=== PATIENT | male | born 1940 | race Caucasian/White ===

== ENCOUNTER 2019-06-19 14:49 | Inpatient (IN) | payer OTHER ==
[~2019-06-19] VITALS: Ht 172.7 cm; Wt 73.0 kg
--- NOTE | ~2019-06-19 | EKG ---
[place], [place] ELECTROCARDIOGRAM REPORT NAME: RENITA LAMB UNIT #: [id number] ROOM: 510 DOCTOR: PRUDENCIO DRAFT REPORT BIRTHDATE: [birth year] [facility] Test Date: 2019-06-19 Test Time: 15:18:48 Pat Name: RENITA LAMB Department: Room: 510 Gender: M Spar Machine Operator: Shari Schneider : 1940 Requested By: JAYCOB BYRNES Order Number: [id number] Reading MD: Nahun Paul MD Measurements Intervals [place] Rate: 58 P: 88 UT: 161 QRS: 77 QRSD: 95 T: 115 QT: 447 QTc: 440 Interpretive Statements Sinus rhythm Nonspecific T abnormalities, lateral leads Baseline wander in lead(s) I,II,III Compared to ECG 02/20/2019 04:40:14 Supraventricular tachycardia no longer present Electronically Signed On 06-21-2019 4:07:36 PDT by Nahun Paul MD CM:EKGRPT:ELECTROCARDIOGRAM REPORT [id number] JAYCOB SPEAR DRAFT REPORT JAYCOB BYRNES DO
[~2019-06-19 14:49] MED LIST: ADVAIR 250/501 EA INH; AMLODIPINE BESYL5 MG PO; AMOXIL500 MG PO; ASPIRIN CHEWABL81 MG PO; ATARAX25 MG PO; AZITHROMYCIN250 MG PO; B12,B-12,B 12500 MC1 PO; DEPAKOTE PO; DEPAKOTE500 MG PO; DONEPEZIL HCL5 MG PO; EQ LUBRICATING15 ML OP; FLOMAX0.4 MG PO; FUROSEMIDE20 M1 PO; KEFLEX500 MG PO; KENALOG0.51 TP; LEVAQUIN750 M1 PO; MELATONIN3 MG PO; METOPROLOL TART50 M1 PO; MUCINEX ER600 MG PO; PREDNISONE10 MG PO; VENTOLIN H0.09 MG/AC INH; VITAMIN D-32000 UNI1 PO
[2019-06-19 14:52] VITALS: BP 95/69
--- NOTE | 2019-06-19 15:47 | NUR ---
FAMILY REFUSES IV AT THIS TIME.
[2019-06-19 16:00] VITALS: BP 128/90
--- NOTE | 2019-06-19 16:00 | NUR ---
FAMILY STATES THEY WANT NOTHING DONE TO PATIENT. REFUSED WOUND PHOTOS.
[2019-06-19 17:50] VITALS: BP 128/90
--- NOTE | 2019-06-19 17:50 | NUR ---
Time: 1749 A 78 year old MALE admitted to 5E under services of ROBERTO ALAS DO. Pt. arrived via bed from ER. Chief complaint: INPATIENT HOSPICE. [facility]
--- NOTE | 2019-06-19 18:18 | NUR ---
FAMILY REFUSED IV ACCESS AND WOUND PHOTOS AND MEASUREMENTS D/T HOSPICE STATUS.
--- NOTE | 2019-06-19 19:46 | NUR ---
SPOKE TO [facility] FOR C[facility] RN AND REQUESTED HER FAX COPY OF MED LIST. FAX NUMBER PROVIDED.
[2019-06-19 20:00] VITALS: BP 108/48
--- NOTE | 2019-06-19 21:12 | NUR ---
MED LIST REC'D FROM [facility] VIA FAX. MED REC UPDATED. HARD COPY ON CHART.
[2019-06-19] MEDS ORDERED: NORVASC5 MG PO (21:14)
[2019-06-19] MEDS ORDERED: VITAMIN D32000 UNI1 PO (21:15)
[2019-06-19] MEDS ORDERED: Ipratropium Brom3 ML INH (21:16)
[2019-06-19] MEDS ORDERED: TYLENOL325 M2 PO (21:16)
[2019-06-19] MEDS ORDERED: SENNA8.6 MG PO (21:17)
[2019-06-19] MEDS ORDERED: DULCOLAX10 M1 R (21:18)
--- NOTE | 2019-06-19 22:01 | NUR ---
SON AND DAUGHTER OK WITH STARTING IV FOR COMFORT MEASURE MEDS ONLY. IV STARTED PER REQUEST. CALLED REQUESTING IV LASIX FOR RHONCHI/CRACKLES TO LUNGS AND DIFFICULTY BREATHING. SAID HE WOULD ORDER IT. SEE MAR. SEE IV ASSESSMENT.
[2019-06-20] VITALS: BP 114/60
--- NOTE | 2019-06-20 01:20 | NUR ---
PRN MORPHINE EFFECTIVE.
--- NOTE | 2019-06-20 02:20 | NUR ---
PRN MORPHINE GIVEN AT THIS TIME FOR RESTLESSNESS. CALL LIGHT IS WITHIN REACH.
--- NOTE | 2019-06-20 06:55 | NUR ---
PRN MORPHINE GIVEN FOR RESTLESSNESS. CALL LIGHT IS WITHIN REACH.
--- NOTE | 2019-06-20 07:33 | NUR ---
PRN MORPHINE EFFECTIVE.
[2019-06-20 08:00] VITALS: BP 108/46
--- NOTE | 2019-06-20 11:06 | NUR ---
PT IS [facility] AND WAS HOSPICE AT HOME [facility]. WILL CONTINUE TO FOLLOW.
[2019-06-20 12:00] VITALS: BP 106/48
--- NOTE | 2019-06-20 12:11 | NUR ---
INCREASED RESPIRATIONS NOTED AT THIS TIME; PT MEDICATED WITH MORPHINE FOR COMFORT AND AGITATION. WILL MONITOR FOR EFFECTIVENESS
--- NOTE | 2019-06-20 13:07 | NUR ---
RENITA LAMB [id number] Please refer to the physician's history and physical for past medical history, comorbid conditions, and allergies. Diagnosis: METABOLIC ENCEPHALOPATHY DEHYDRATION Kade Score: 12,MODERATE RISK WOUND DESCRIPTIONS: Wound Number: 1 Location of the wound: left hip Type of wound: DTI Thickness: Full Size: 4.1cm X 3.6cm X <0.1CM Tunneling: none Undermining: none Sinus Tract: none Presence of Exudate: Amount: None Color: Purple Odor: None Periwound Skin Appearance: Normal Wound edges: closed. Pain (associated with wound): denied at time of assessment How does patient state this happened? patient unsure how this happened. Surface the patient is resting on: Isoflex SKIN PREVENTION RECOMMENDATION: 1. Pressure redistribution support surface as appropriate 2. Elevate heels 3. Remove boots/TEDS every shift and reapply 4. Head of bed 30 degrees as tolerated 5. Assess nutrition and hydration 6. Manage moisture 7. Avoid the use of containment devices while in bed 8. Use absorptive products on surfaces limit layers of linens on bed 9. Turn and reposition every 1-2 hours in bed and every 1 hour in chair as tolerated 10. Weight shifts every 15 minutes while up in chair 11. Offloading with pillows or device to keep heels elevated off bed 12. Monitor skin at least every shift 13. Inspect under medical devices twice a day WOUND TREATMENT RECOMMENDATIONS: DTI guideline to left hip: CLeanse with nss apply sureprep over the wound allow to dry and cover with an optifoam gentle.
--- NOTE | 2019-06-20 13:15 | NUR ---
PT APPEARS MUCH MORE COMFORTABLE AT THIS TIME; MEDICATION EFFECTIVE
--- NOTE | 2019-06-20 14:00 | NUR ---
FAMILY REFUSING WOUNDCARE AT THIS TIME; DR PLAZA
--- NOTE | 2019-06-20 15:24 | NUR ---
Unable to reach resident to give wound care recommendations. Nurse caring for patient was made aware to ask for orders.
[2019-06-20 16:00] VITALS: BP 78/32
--- NOTE | 2019-06-20 16:06 | NUR ---
PT MEDICATED WITH SUBLINGUAL MORPHINE FOR COMPLAINTS OF RESTLESSNESS/INCREASED RESPIRATIONS. WILL MONITOR FOR EFFECTIVENESS.
--- NOTE | 2019-06-20 16:45 | NUR ---
PATIENT APPEARS TO BE MUCH MORE RELAXED AT THIS TIME
--- NOTE | 2019-06-20 17:04 | NUR ---
HOSPICE NURSE IN AT THIS TIME AND RECOMMENDING ATROPINE GTTS PRN AND DICONTINUING ORAL PILLS. NOTIFIED .
[2019-06-20 20:00] VITALS: BP 75/38
--- NOTE | 2019-06-20 23:05 | NUR ---
PATIENT AT 2002 WITH FAMILY AT BEDSIDE. VERIFIED BY THIS RN AND TEODORO JAIME RN. SHIFT DIRECTOR ABRIL RAND, RN NOTIFIED AT 2004, ONE CALL NOTIFIED AT 2006. SPOKE WITH FABIÁN AND BODY WAS RELEASED REFERENCE # [id number]. DR. STANLEY NOTIFIED AT 2021. [facility] NOTIFIED AT 2037 PER FAMILY REQUEST, MESSAGE WITH RAIN. AWAITING CALL BACK. NO CALL BACK RECIEVED, [facility] ON FLOOR AT 2121 FOR PATIENT. REASSURANCE AND COMFORT PROVIDED TO FAMILY.
== END 2019-06-20 20:03 | disposition expired | DRG 70 ==
LOC: ED 14:49 → EDHOLD 15:55 → 5E 15:55
PROVIDERS: ADMIT Internal Medicine
DX: G93.41 Metabolic encephalopathy (principal); E43 Unspecified severe protein-calorie malnutrition; J96.11 Chronic respiratory failure with hypoxia; I50.32 Chronic diastolic (congestive) heart failure; I13.0 Hypertensive heart and chronic kidney disease with heart failure and stage 1 through stage 4 chronic kidney disease, or unspecified chronic kidney disease; J44.9 Chronic obstructive pulmonary disease, unspecified; L89.321 Pressure ulcer of left buttock, stage 1; Z66 Do not resuscitate; Z51.5 Encounter for palliative care; E86.0 Dehydration; N40.0 Benign prostatic hyperplasia without lower urinary tract symptoms; G30.9 Alzheimer's disease, unspecified; F02.80 Dementia in other diseases classified elsewhere, unspecified severity, without behavioral disturbance, psychotic disturbance, mood disturbance, and anxiety; E55.9 Vitamin D deficiency, unspecified; N18.3 Chronic kidney disease, stage 3 (moderate); I95.9 Hypotension, unspecified; Z99.81 Dependence on supplemental oxygen; Z87.891 Personal history of nicotine dependence; Z88.0 Allergy status to penicillin; Z79.899 Other long term (current) drug therapy; Z79.82 Long term (current) use of aspirin; Z68.24 Body mass index [BMI] 24.0-24.9, adult